=== PATIENT | female | born 1995 | race Caucasian/White ===

== ENCOUNTER 2017-06-13 13:16 | Inpatient (IN) | payer OTHER ==
[2017-06-21] MEDS ORDERED: CARBOPROST TROMETHAMINE 250 MCG/ML 1 ML AMP IM PRN (06:36)
[2017-06-21] MEDS ORDERED: LIDOCAINE 1% (PF) 10 MG/ML (30 ML SDV) SQ PRN (06:36)
[2017-06-21] MEDS ORDERED: METHYLERGONOVINE 0.2 MG/ML 1 ML AMP IM PRN (06:36)
[2017-06-21] MEDS ORDERED: OXYTOCIN 10 UNIT/ML 1 ML VIAL IM PRN (06:36)
[2017-06-21] MEDS ORDERED: TERBUTALINE 1 MG/ML VIAL SQ PRN (06:36)
[2017-06-21] MEDS ORDERED: OXYTOCIN 20 UNITS/1000 ML NS 1,000 ML IV SCH ×2 (06:45→15:30)
[2017-06-21 06:54] LABS: Basophils % (A) 0 %; CH 27.5; CHCM 32.3; Eosinophils # (A) 0.2 k/uL (0-0.7); Eosinophils % (A) 2 %; HCT 30.8 % (34.0-46.0); HDW 3.63; HGB 10.1 gm/dL (11.4-16.0); Hypochromasia Moderate; Luc # (Auto) 0.38; Luc % (Auto) 3; Lymphocytes # (A) 2.7 k/uL (1.0-4.8); Lymphocytes % (A) 24 %; MCH 27.8 pg (25.0-35.0); MCHC 32.6 g/dL (31.0-37.0); MCV 85.4 fL (80.0-100.0); Mean Platelet Volume 7.6; Monocytes # (A) 0.7 k/uL (0-1.0); Monocytes % (A) 6 %; Neutrophils # (A) 7.3 k/uL (1.3-7.7); Neutrophils % (A) 64 %; Poikilocytosis Slight; RBC 3.61 m/uL (3.80-5.40); RDW 14.6 % (11.5-15.5); WBC 11.3 k/uL (3.8-10.6); WBC (Perox) 11.57
[2017-06-21] MEDS: LACTATED RINGERS 1,000 ML IV SCH ×2 (06:54→09:49)
[2017-06-21] MEDS ORDERED: BUTORPHANOL 1 MG/ML 1 ML VIAL IV PRN (07:48)
--- NOTE | 2017-06-21 07:48 | P.HPOB ---
History of Present Illness H&P Date: 06/21/17 Chief Complaint: 41-2/7 weeks, induction The patient is a 21-year-old 2 para 1001 admitted at 41-2/7 weeks as established by last menstrual period and confirmed by second trimester ultrasound. Her has been entirely uncomplicated. She does carry a diagnosis of asthma which has been stable throughout the . Group B strep status is negative. On labor and delivery, all signs reassuring. testing since her due date has been reassuring as was her amniotic fluid index. Obstetrical history 2 para 1001 with 1 term vaginal delivery. Current statistics are listed in history present illness. EDC of 06/12/2017 was established by last menstrual period and confirmed by a 19 week ultrasound. Laboratory workup demonstrates a blood type of A+ with a negative antibody screen. Rubella status is immune. The remainder of the laboratory workup was within normal limits. One hour Glucola was within normal limits and group B strep status is negative. Gynecologic history is unremarkable with no history of any infections to include STDs. Review of Systems Review of systems is confined to history of present illness. Past Medical History Past Medical History: Asthma History of Any Multi-Drug Resistant Organisms: None Reported Past Surgical History: No Surgical Hx Reported Past Anesthesia/Blood Transfusion Reactions: No Reported Reaction Past Psychological History: No Psychological Hx Reported Smoking Status: Never smoker Past Alcohol Use History: None Reported Past Drug Use History: None Reported - Past Family History Mother Family Medical History: No Reported History Medications and Allergies Home Medications Medication Instructions Recorded Confirmed Type No Known Home Medications [No 06/21/17 06/21/17 History Known Home Medications] Allergies Allergy/AdvReac Type Severity Reaction Status Date / Time No Known Allergies Allergy Verified 06/21/17 06:36 Exam - Vital Signs Vital signs: Vital Signs Temp Pulse Resp BP Pulse Ox 06/21/17 06:44 96.7 F L 111 H 16 115/59 97 Intake and Output 06/20/17 06/21/17 06/21/17 22:59 06:59 14:59 Other: Weight 76.204 kg In general, this is a well-developed, well-nourished white female in no acute distress. Her heart has a regular rhythm and rate without murmur. Her lungs are clear to auscultation bilaterally in all fontenot. Her abdomen is gravid, nondistended, has normal active bowel sounds, is soft, nontender, and without any palpable masses aside from uterine fundus. Her extremities without any cyanosis, clubbing, or significant edema and are nontender to palpation bilaterally. Digital cervical examination demonstrates her cervix to be 3-4 cm dilated, 60% effaced, the vertex in presentation at -2 station. Artificial rupture of membranes is carried out demonstrating clear fluid. Results Result Diagrams: 06/21/17 06:30 Abnormal Lab Results - Last 24 Hours (Table) 06/21/17 Range/Units 06:30 WBC 11.3 H (3.8-10.6) k/uL RBC 3.61 L (3.80-5.40) m/uL Hgb 10.1 L (11.4-16.0) gm/dL Hct 30.8 L (34.0-46.0) % Assessment and Plan (1) Post-dates Status: Acute Plan: The patient is admitted for postdates induction of labor. Pitocin augmentation has been started and artificial rupture of membranes carried out. She will continue to have close maternal and surveillance and expectant management will be practiced. She is a good candidate for either IV or epidural analgesia , whichever she may choose.
[2017-06-21] MEDS ORDERED: BUPIVACAINE (PF) 0.25% 30 ML VIAL ONE (09:36)
[2017-06-21] MEDS ORDERED: fentaNYL (PF) 50 MCG/ML 5 ML AMP ONE (09:36)
[2017-06-21] MEDS ORDERED: SODIUM CHLORIDE 0.9% 100 ML BAG ONE (09:36)
[2017-06-21] MEDS ORDERED: ePHEDrine 50 MG/ML 1 ML AMP ONE (09:36)
[2017-06-21] MEDS ORDERED: BUPIVACAINE (PF) 0.25% 25 ML, fentaNYL (PF) 200 MCG in SODIUM CHLORIDE 0.9% 71 ML EPIDURAL ONE (11:15)
[2017-06-21] MEDS ORDERED: ACETAMINOPHEN TAB 325 MG TAB PO PRN (15:26)
[2017-06-21] MEDS ORDERED: diphenhydrAMINE 50 MG CAP PO PRN (15:26)
[2017-06-21] MEDS ORDERED: SIMETHICONE 80 MG CHEWABLE PO PRN (15:26)
[2017-06-21] MEDS ORDERED: LANOLIN CREAM 5 GM TUBE TOPICAL PRN (15:26)
[2017-06-21] MEDS ORDERED: Acetaminophen-Codeine 300-30mg TAB PO PRN ×2 (15:26)
[2017-06-21] MEDS ORDERED: diphenhydrAMINE 25 MG CAP PO PRN (15:26)
[2017-06-21] MEDS ORDERED: BENZOCAINE/MENTHOL SPRAY 1 GM/SPRAY AEROSOL TOPICAL PRN (15:26)
[2017-06-21] MEDS ORDERED: diphenhydrAMINE 50 MG/ML 1 ML VIAL IVP PRN ×2 (15:26)
[2017-06-21] MEDS ORDERED: IBUPROFEN 600 MG TAB PO PRN (15:26)
[2017-06-21] MEDS ORDERED: ZOLPIDEM 5 MG TAB PO PRN (15:26)
[2017-06-21] MEDS ORDERED: HYDROCORTISONE 2.5% RECTAL CREAM 30 GM TUBE RECTAL PRN (15:26)
[2017-06-21] MEDS ORDERED: WITCH HAZEL 1 EACH MED..PAD TOPICAL PRN (15:26)
--- NOTE | 2017-06-21 15:30 | P.PROBDLV ---
Vaginal Delivery Note - . Vaginal Delivery Note: The patient is a 21-year-old 2 para 1001 admitted at 41-2/7 weeks by good dating parameters. She is admitted for postdates induction of labor with all signs reassuring. Her has been completely uncomplicated and group B strep status is negative. On labor and delivery, she had Pitocin augmentation started followed by artificial rupture of membranes demonstrating clear fluid. She made reasonable progress through the latent phase of labor and had an epidural catheter placed just after the onset of active phase of labor. She progressed fairly quickly through the active phase of labor to complete and then labored down for a period of time as her epidural was still thick. She then pushed over the course of 15-20 minutes to a normal spontaneous vaginal delivery of a viable 9 lbs. 4 oz. baby girl with Apgars of 9 at 1 minute and 9 at 5 minutes delivered in the left occiput anterior position. There was a loose nuchal cord 1 which was reduced following delivery of the . The placenta was delivered spontaneously, intact, and grossly normal with a grossly normal, centrally inserted and a very long three- vessel cord. There were no lacerations of the perineum, vagina, or cervix. Estimated blood loss for the case was approximately 200 mL. There were no complications. Both mother and are resting comfortably in recovery.
[2017-06-22] MEDS: SENNOSIDES-DOCUSATE SODIUM 1 EACH TAB PO SCH ×2 (00:23→08:02)
[2017-06-22 08:05] VITALS: RESP 16
--- NOTE | 2017-06-22 08:44 | P.DS ---
Providers Date of admission: 06/21/17 06:25 Expected date of discharge: 06/22/17 Attending physician: Hussain Leon Primary care physician: Stated None - Discharge Diagnosis(es) (1) Post-dates Current Visit: Yes Status: Acute (2) Normal spontaneous vaginal delivery Current Visit: Yes Status: Acute Hospital Course: The patient is a 21-year-old 2 para 1001 admitted at 41-2/7 weeks by good dating parameters. She is admitted for postdates induction of labor with all signs reassuring. Her has been uncomplicated and group B strep status is negative. On labor and delivery, she had Pitocin augmentation started and underwent artificial rupture of membranes demonstrating clear fluid. She had an epidural catheter placed at the onset of the active phase of labor. She made fairly steady and rapid progress through the active phase of labor to complete but had no urge to push. She labored down for approximately 1 -2 hours until she felt an urge. She then pushed over the course of approximately 15 minutes to a normal spontaneous vaginal delivery of a viable 9 lbs. 4 oz. baby girl with Apgars of 9 at 1 minute and 9 at 5 minutes. Her course was unremarkable with vital signs remaining stable and her temperature was afebrile throughout. She was deemed stable for discharge by day #1 and was discharged home to follow-up in the office in 6 weeks routinely. Discharge instructions included calling for any significantly increased bleeding or foul-smelling lochia, significantly increased fever or abdominal pain, perineal complaints, breast complaints, or anything else that concerned her. She was additionally instructed to have nothing in the vagina for at least 6 weeks time to include intercourse. She understood her instructions and agrees to follow up as noted above. Discharge medications included continued vitamins as she has opted to breast-feed. She otherwise was to use [id number] analgesic pain medications as necessary. Maternal blood type is A+ and rubella status is immune. Procedures: #1. Pitocin induction #2. Artificial rupture of membranes #3. Epidural analgesia #4. Normal spontaneous vaginal delivery Patient Condition at Discharge: Good Plan - Discharge Summary New Discharge Prescriptions: No Action No Known Home Medications [No Known Home Medications] Discharge Medication List No Known Home Medications [No Known Home Medications] 06/21/17 [History] Follow up Appointment(s)/Referral(s): Hussain Leon MD [STAFF PHYSICIAN] - 6 Weeks Discharge Disposition: HOME SELF-CARE
[2017-06-22 12:28] VITALS: BP 88/51; PULSE 81; TEMP 97.9
== END 2017-06-22 16:45 | disposition home or self-care (01) | DRG 775 ==
LOC: 4FBP 06-21 06:25
PROVIDERS: ADMIT Obstetrics & Gynecology; ATTEND Obstetrics & Gynecology
PROC: 10907ZC Drainage of Amniotic Fluid, Therapeutic from Products of Conception, Via Natural or Artificial Opening (ICD-10-PCS; principal; 2017-06-21)
PROC: 3E033VJ Introduction of Other Hormone into Peripheral Vein, Percutaneous Approach (ICD-10-PCS; principal; 2017-06-21)
PROC: 10E0XZZ Delivery of Products of Conception, External Approach (ICD-10-PCS; principal; 2017-06-21)
DX: O48.0 Post-term pregnancy (principal); O69.81X0 Labor and delivery complicated by cord around neck, without compression, not applicable or unspecified; Z37.0 Single live birth; Z3A.41 41 weeks gestation of pregnancy
CPT/HCPCS: 85025; 88307

== ENCOUNTER 2023-07-31 06:15 | Inpatient (IN) | payer OTHER ==
[2023-08-02] MEDS ORDERED: OXYTOCIN 10 UNIT/ML 1 ML VIAL IM PRN (06:53)
[2023-08-02] MEDS ORDERED: TRANEXAMIC 1,000 MG/100ML-NACL 1,000 MG in EMPTY BAG 1 BAG IV PRN (06:53)
[2023-08-02] MEDS ORDERED: miSOPROStoL 200 MCG TAB PO PRN (06:53)
[2023-08-02] MEDS ORDERED: METHYLERGONOVINE 0.2 MG/ML 1 ML AMP IM PRN (06:53)
[2023-08-02] MEDS ORDERED: CARBOPROST TROMETHAMINE 250 MCG/ML 1 ML AMP IM PRN (06:53)
[2023-08-02] MEDS ORDERED: TERBUTALINE 1 MG/ML VIAL SQ PRN (06:53)
[2023-08-02] MEDS ORDERED: LIDOCAINE 0.5% (PF) 5 MG/ML (50 ML SDV) SQ PRN (06:53)
[2023-08-02] MEDS ORDERED: OXYTOCIN 30 UNITS/500 ML NS 30 UNIT in SALINE 1 500ML.BAG IV SCH ×2 (07:00→14:45)
[2023-08-02] MEDS: LACTATED RINGERS 1,000 ML IV SCH ×3 (07:05→15:05)
[2023-08-02 07:21] LABS: Basophils % (A) 0 %; Eosinophils # (A) 0.2 k/uL (0-0.7); Eosinophils % (A) 2 %; HCT 33.4 % (34.0-46.0); Lymphocytes # (A) 2.2 k/uL (1.0-4.8); Lymphocytes % (A) 25 %; MCH 28.9 pg (25.0-35.0); MCHC 33.1 g/dL (31.0-37.0); MCV 87.3 fL (80.0-100.0); Mean Platelet Volume 9.1; Monocytes # (A) 0.6 k/uL (0-1.0); Monocytes % (A) 7 %; Neutrophils # (A) 5.7 k/uL (1.3-7.7); Neutrophils % (A) 64 %; Platelet Count 273 k/uL (150-450); RBC 3.82 m/uL (3.80-5.40); RDW 13.8 % (11.5-15.5); WBC 8.9 k/uL (3.8-10.6)
[2023-08-02] MEDS ORDERED: NALBUPHINE 10 MG/ML (10 ML MDV) IV PRN (09:04)
--- NOTE | 2023-08-02 09:08 | P.HPOB ---
History of Present Illness H&P Date: 08/02/23 Chief Complaint: 40-2/7 weeks, induction The patient is a 27-year-old 3 para 2001 admitted at 40-2/7 weeks as established by last menstrual period and confirmed by 11 week ultrasound. She is admitted for postdates induction with all signs reassuring. Her has been entirely uncomplicated and group B strep status is negative. On labor and delivery, all signs reassuring with a category 1 heart rate tracing. Obstetrical history: 3 para 2001 with 2 previous normal vaginal deliveries. Current statistics are listed in history present illness. EDC of 07/31/2023 was established by last menstrual period and confirmed by an 11 week ultrasound. Laboratory workup demonstrates a blood type of A+ with a negative antibody screen. Rubella status is immune. The remainder of the laboratory workup was within normal limits. One hour Glucola was normal and group B strep status is negative. Gynecologic history: Unremarkable with no history of any infections to include STDs. Review of Systems Review of systems is confined to history of present illness. Past Medical History Past Medical History: Asthma History of Any Multi-Drug Resistant Organisms: None Reported Past Surgical History: No Surgical Hx Reported Past Anesthesia/Blood Transfusion Reactions: No Reported Reaction Past Psychological History: No Psychological Hx Reported Smoking Status: Never smoker Past Alcohol Use History: None Reported Past Drug Use History: None Reported - Past Family History Mother Family Medical History: No Reported History Medications and Allergies Home Medications Medication Instructions Recorded Confirmed Type Omeprazole [PriLOSEC] 1 capsule PO DAILY 08/02/23 08/02/23 History Pnv No.175/Iron Fum/Folic Acid 1 capsule PO DAILY 08/02/23 08/02/23 History [ Complete Tablet] Allergies Allergy/AdvReac Type Severity Reaction Status Date / Time No Known Allergies Allergy Verified 08/02/23 06:51 Exam Vital Signs Temp Pulse Resp BP Pulse Ox 08/02/23 07:27 97.2 F L 96 16 112/66 98 Intake and Output 08/01/23 08/02/23 08/02/23 22:59 06:59 14:59 Other: Weight 77.111 kg 77.111 kg In general, this is a well-developed, well-nourished white female in no acute distress. Her heart has a regular rhythm and rate without murmur. Her lungs clear to auscultation bilaterally in all fontenot. Her abdomen is gravid, nondistended, has normal active bowel sounds, soft, nontender, and without any palpable masses aside from uterine fundus. Her extremities without any cyanosis, clubbing, or edema and are nontender to palpation bilaterally. Digit al cervical examination demonstrates her cervix to be approximately 3 cm dilated, 50% effaced, the vertex in presentation at -2 station. Artificial rupture of membranes is carried out demonstrating clear fluid. Results Result Diagrams: 08/02/23 07:05 Abnormal Lab Results - Last 24 Hours (Table) 08/02/23 Range/Units 07:05 Hgb 11.0 L (11.4-16.0) gm/dL Hct 33.4 L (34.0-46.0) % Assessment and Plan (1) Post-dates Current Visit: No Status: Acute Code(s): O48.0 - POST-TERM SNOMED Code(s): 61478457 Plan: The patient is admitted for postdates induction, Pitocin augmentation has been started. She has undergone artificial rupture of membranes for clear fluid. She will have close maternal and surveillance and expectant management will be practiced. She is a good candidate for either IV or epidural analgesia, whichever she may choose.
[2023-08-02] MEDS ORDERED: ROPIVACAINE 5 MG/ML 30 ML VIAL ONE (12:28)
[2023-08-02] MEDS ORDERED: fentaNYL (PF) 50 MCG/ML 5 ML AMP ONE (12:28)
[2023-08-02] MEDS ORDERED: SODIUM CHLORIDE 0.9% 250 ML BAG ONE (12:28)
[2023-08-02] MEDS ORDERED: HYDROCORTISONE 2.5% RECTAL CREAM 30 GM TUBE RECTAL PRN (14:45)
[2023-08-02] MEDS ORDERED: ACETAMINOPHEN TAB 325 MG TAB PO PRN (14:45)
[2023-08-02] MEDS ORDERED: SIMETHICONE 80 MG CHEWABLE PO PRN (14:45)
[2023-08-02] MEDS ORDERED: diphenhydrAMINE 50 MG CAP PO PRN (14:45)
[2023-08-02] MEDS ORDERED: ZOLPIDEM 5 MG TAB PO PRN (14:45)
[2023-08-02] MEDS ORDERED: BENZOCAINE/MENTHOL SPRAY 1 GM/SPRAY AEROSOL TOPICAL PRN (14:45)
[2023-08-02] MEDS ORDERED: diphenhydrAMINE 25 MG CAP PO PRN (14:45)
[2023-08-02] MEDS ORDERED: diphenhydrAMINE 50 MG/ML 1 ML VIAL IVP PRN ×2 (14:45)
[2023-08-02] MEDS ORDERED: HYDROcodone/APAP 5-325MG 1 EACH TAB PO PRN (14:45)
[2023-08-02] MEDS ORDERED: HYDROcodone/APAP 7.5-325MG 1 EACH TAB PO PRN (14:45)
[2023-08-02] MEDS ORDERED: LANOLIN CREAM 5 GM TUBE TOPICAL PRN (14:45)
--- NOTE | 2023-08-02 14:49 | P.PROBDLV ---
Vaginal Delivery Note - . Vaginal Delivery Note: The patient is a 27-year-old 3 para 2 scissors or 2 admitted at 40-2/7 weeks by good dating parameters. She is admitted for postdates induction with all signs reassuring, category 1 heart rate tracing. Her has been uncomplicated and group B strep status is negative. On labor and delivery, she had Pitocin started followed by artificial rupture of membranes for clear fluid. She had an epidural catheter placed for analgesia around the onset of the active phase of labor. She made progress to complete and then, on her first attempt to push had no sensation was unable to move the baby. She is allowed to labor down for approximately 20-30 minutes at which time some sensation returned patient and pushed over the course of approximately 15-20 minutes to a normal spontaneous vaginal delivery of a viable 8 lbs. 7 oz. baby girl with Apgars of 8 at 1 minute and 9 at 5 minutes delivered in the left occiput anterior position. The placenta was delivered spontaneously, intact, and grossly normal although very large with a grossly normal three-vessel cord inserted approximate 37 m from the margin of the placental disc. There were no lacerations of the perineum, vagina, or cervix. Estimated blood loss for the case is approximately 3 and 50 mL. There were no complications. All sponge, instrument, needle counts were correct. Both mother and infant are resting comfortably in recovery.
[2023-08-02] MEDS: IBUPROFEN 600 MG TAB PO PRN (14:57)
[2023-08-02] MEDS: SENNOSIDES-DOCUSATE SODIUM 1 EACH TAB PO SCH (20:20)
[2023-08-03 06:00] LABS: Basophils % (A) 0 %; Eosinophils # (A) 0.2 k/uL (0-0.7); Eosinophils % (A) 1 %; HCT 31.2 % (34.0-46.0); HGB 10.3 gm/dL (11.4-16.0); Hypochromasia Slight; Lymphocytes % (A) 23 %; MCH 28.8 pg (25.0-35.0); MCHC 32.9 g/dL (31.0-37.0); MCV 87.6 fL (80.0-100.0); Mean Platelet Volume 10.4; Monocytes % (A) 8 %; Neutrophils # (A) 8.9 k/uL (1.3-7.7); Neutrophils % (A) 66 %; Platelet Count 252 k/uL (150-450); RBC 3.56 m/uL (3.80-5.40); RDW 13.9 % (11.5-15.5); WBC 13.3 k/uL (3.8-10.6)
[2023-08-03] MEDS: IBUPROFEN 600 MG TAB PO PRN (08:09)
[2023-08-03] MEDS: SENNOSIDES-DOCUSATE SODIUM 1 EACH TAB PO SCH (08:09)
[2023-08-03 08:20] VITALS: BP 126/71; PULSE 58; RESP 16; TEMP 98.3
--- NOTE | 2023-08-03 12:03 | P.DS ---
Providers Date of admission: 08/02/23 06:43 Expected date of discharge: 08/03/23 Attending physician: Hussain Leon Primary care physician: Stated None - Discharge Diagnosis(es) (1) Post-dates Current Visit: Yes Status: Acute (2) Normal spontaneous vaginal delivery Current Visit: Yes Status: Acute Hospital Course: The patient is a 27-year-old 3 para 2 scissors or 2 admitted at 40-2/7 weeks by good dating parameters perches admitted for postdates induction with all signs reassuring. Her was uncomplicated and group B strep status is negative. On labor and delivery, the category 1 heart rate tracing. She had Pitocin started and underwent artificial rupture of membranes. She made progress to the active phase and had an upper catheter placed for analgesia. She then progressed through the active phase to complete and ultimately pushed to a normal spontaneous vaginal delivery of a viable 8 lbs. 7 oz. baby girl with Apgars of 8 at 1 minute and 9 at 5 minutes. Her course was unremarkable vital signs remained stable and her temperature was afebrile throughout. She was deemed stable for discharge on day 1 was discharged home to follow-up in the office in 6 weeks' time routinely. Discharge instructions included calling for any significantly increased bleeding or foul-smelling lochia, significantly increased fever or abdominal pain, perineal complaints, breast complaints, or anything also concerned her. She is additionally instructed to have nothing in the vagina for at least 6 weeks time to include intercourse. She understood her instructions and agrees to follow up as noted above. Discharge medications included continued vitamins as she has opted to breast-feed. She was otherwise to use [id number] analgesic pain medications as needed. Maternal blood type is A+ and rubella status is immune. Procedures: #1. Pitocin induction #2. Artificial rupture of membranes over 3. Epidural analgesia #4. Normal spontaneous vaginal delivery Patient Condition at Discharge: Stable Plan - Discharge Summary New Discharge Prescriptions: No Action Pnv No.175/Iron Fum/Folic Acid [ Complete Tablet] 1 capsule PO DAILY Omeprazole [PriLOSEC] 1 capsule PO DAILY Discharge Medication List Omeprazole [PriLOSEC] 1 capsule PO DAILY 08/02/23 [History] Pnv No.175/Iron Fum/Folic Acid [ Complete Tablet] 1 capsule PO DAILY 09/12/23 [History] Follow up Appointment(s)/Referral(s): Hussain Leon MD [STAFF PHYSICIAN] - 6 Weeks Discharge Disposition: HOME SELF-CARE
== END 2023-08-03 16:30 | disposition home or self-care (01) | DRG 560 ==
LOC: 4FBP 08-02 06:43
PROVIDERS: ADMIT Obstetrics & Gynecology; ATTEND Obstetrics & Gynecology
PROC: 10E0XZZ Delivery of Products of Conception, External Approach (ICD-10-PCS; principal; 2023-08-02)
PROC: 10907ZC Drainage of Amniotic Fluid, Therapeutic from Products of Conception, Via Natural or Artificial Opening (ICD-10-PCS; 2023-08-02)
PROC: 3E033VJ Introduction of Other Hormone into Peripheral Vein, Percutaneous Approach (ICD-10-PCS; 2023-08-02)
DX: O48.0 Post-term pregnancy (principal); O99.52 Diseases of the respiratory system complicating childbirth; J45.909 Unspecified asthma, uncomplicated; Z37.0 Single live birth; Z3A.40 40 weeks gestation of pregnancy
CPT/HCPCS: 85025; 86850; 86900; 86901